=== PATIENT | female | born 1960 | race Caucasian/White ===

== ENCOUNTER → 2017-01-08 | Day surgery (SDC) | payer OTHER ==
--- NOTE | 2017-01-08 16:16 | OP ---
DATE OF OPERATION: DATE OF DICTATION: 01/08/2017 PREOPERATIVE DIAGNOSIS: Abnormal left mammography. POSTOPERATIVE DIAGNOSIS: Abnormal left mammography. PROCEDURE: Left stereotactic needle biopsy with clips. SURGEON: Audelia Barba M.D. ANESTHESIA: Local. COMPLICATIONS: None. This is a sterile procedure. INDICATION FOR PROCEDURE: Patient presented for screening mammogram and noted new microcalcifications anterior to her lumpectomy site on the upper outer left breast, was recommended for needle biopsy. The procedure discussed with her including the need for clip. PROCEDURE IN DETAIL: Patient was brought to [facility] [place], laid prone on the LORAD table. Using the lateral approach, the calcifications in the upper outer left breast were identified. A sterile prep was obtained. A target was chosen. There was a positive stroke margin. Using Betadine and 1% lidocaine, a 10-gauge Suros device was used to take several cores from this area. A specimen radiograph showed cores with calcifications. These were handled with usual calcification protocol. Hemostasis assured with direct pressure. Steri-Strips were used to close the incision. She tolerated the procedure well and left the breast imaging center in good condition. AUDELIA BARBA M.D. [id number]
--- NOTE | 2017-01-09 10:25 | PATH ---
Surgical Pathology Report Patient Name: DANE BUCK [facility]. Rec. #: [id number] /Age/Gender: 1960 (Age: 56) / F Account: [id number] Location: [facility] Taken: 01/08/2017 Received: 01/08/2017 Reported: 01/09/2017 Physicians: Audelia Abarca M.D. Specimen(s) Received A: LEFT BREAST SPECIMEN WITH CALCIFICATIONS B: LEFT BREAST SPECIMEN WITHOUT CALCIFICATIONS Clinical History History of left lumpectomy for breast cancer with calcification anterior to lumpectomy cavity Final Diagnosis A. LEFT BREAST, WITH CALCIFICATION, STEREOTACTIC NEEDLE CORE BIOPSY: BENIGN BREAST TISSUE WITH EXTENSIVE FAT NECROSIS AND FIBROSIS WITH ASSOCIATED DYSTROPHIC CALCIFICATION. B. LEFT BREAST, WITHOUT CALCIFICATION, STEREOTACTIC NEEDLE CORE BIOPSY: BENIGN BREAST TISSUE WITH EXTENSIVE FAT NECROSIS AND FIBROSIS WITH ASSOCIATED DYSTROPHIC CALCIFICATION. Comment: No carcinoma is identified in the current specimen. Also see prior specimen [id number]. Electronically Signed Gabriel Palafox M.D. Gross Description A. Received in formalin labeled "left breast with calcifications," is a 2.0 x 1.5 x 0.3 cm aggregate of multiple zepeda-yellow, irregular to cylindrical portions of fibroadipose tissue. The formalin is filtered and the specimen is entirely submitted in one cassette. B. Received in formalin labeled "left breast without calcifications," are 2 zepeda-yellow, cylindrical portions of fibroadipose tissue averaging 1.4 cm in length and measuring 0.1 and 0.3 cm in diameter. The specimens are submitted in toto in one cassette. Time to formalin fixation: 5 minutes Total formalin fixation time: Approximately 7 hours. /01/08/2017 [facility]01/08/2017
== END | disposition home or self-care (01) ==
LOC: FMAMMOTONE 10:08
PROVIDERS: ATTEND Surgery
PROC: 0HBU3ZX Excision of Left Breast, Percutaneous Approach, Diagnostic (ICD-10-PCS; principal; 2017-01-08)
DX: N64.1 Fat necrosis of breast (principal); R92.8 Other abnormal and inconclusive findings on diagnostic imaging of breast; N60.22 Fibroadenosis of left breast; N64.89 Other specified disorders of breast
CPT/HCPCS: 19081; 88305-TC

== ENCOUNTER 2017-03-17 08:35 | Day surgery (SDC) | payer OTHER ==
[2017-03-17 09:03] VITALS: BMI 30.2
[2017-03-17] MEDS ORDERED: LIDOCAINE HCL 1%, 10 MG/ML (20ML VIAL) ONE (11:02)
[2017-03-17] MEDS ORDERED: MIDAZOLAM HCL 2 MG/2 ML SINGLE DOSE VIAL ONE (11:14)
[2017-03-17] MEDS ORDERED: PROPOFOL 20 ML ONE (11:14)
[2017-03-17] MEDS ORDERED: ceFAZolin SODIUM 1 GM VIAL ONE (11:32)
[2017-03-17] MEDS ORDERED: ceFAZolin SODIUM 1 GM VIAL IVPB ONE (11:34)
[2017-03-17] MEDS ORDERED: LIDOCAINE HCL 1%, 10 MG/ML (50 mL VIAL) IJ ONE (11:36)
[2017-03-17] MEDS ORDERED: oxyCODONE HCL 5 MG TABLET PO PRN (11:55)
[2017-03-17] MEDS ORDERED: ONDANSETRON 4 MG/2 ML VIAL IVPUSH PRN (11:55)
[2017-03-17] MEDS ORDERED: ACETAMINOPHEN 325 MG TABLET (FP) PO PRN (11:55)
[2017-03-17] MEDS ORDERED: LACTATED RINGERS SOLUTION 1,000 ML IV SCH (12:00)
[2017-03-17 14:55] VITALS: PULSE 78
[2017-03-17 14:59] VITALS: BP 101/60; TEMP 97.8
--- NOTE | 2017-03-18 00:33 | OP ---
DATE OF OPERATION: 03/17/2017 PREOPERATIVE DIAGNOSIS: Breast cancer and insufficient venous access. POSTOPERATIVE DIAGNOSIS: Breast cancer and insufficient venous access. PROCEDURE: Removal of right chest Mediport. SURGEON: Audelia Barba M.D. ANESTHESIA: Local IV sedation. ESTIMATED BLOOD LOSS: Minimal. COMPLICATIONS: None. This is a sterile procedure. INDICATION FOR PROCEDURE: Patient had a Mediport for chemotherapy which is now show is done and presents for removal of the Mediport. Procedure discussed with all the questions answered. PROCEDURE IN DETAIL: Patient brought to [facility] taken into the operating room, and after IV sedation, IV antibiotics, the right upper chest was prepped with Betadine and draped in the usual sterile manner. The primary incision was anesthetized with 1% lidocaine without epinephrine. The Mediport was removed without difficulty from the pocket. Hemostasis assured with electrocautery. The incision was then closed in a routine fashion with interrupted 0 Vicryl, running 4-0 Biosyn. A sterile dressing with Tegaderm 4x4 is applied. She tolerated the procedure well, was taken to recovery in good condition. AUDELIA BARBA M.D. AMINTA/[id number]
--- NOTE | 2017-03-18 09:41 | PATH ---
Surgical Pathology Report Patient Name: DANE BUCK Med. Rec. #: [id number] /Age/Gender: 1960 (Age: 57) / F Account: [id number] Location: [facility] Taken: 03/17/2017 Received: 03/17/2017 Reported: 03/18/2017 Physicians: Audelia Abarca M.D. Specimen(s) Received REMOVED ADELA CATH RIGHT Clinical History Removed Port-A-Cath right Final Diagnosis SWATCHER, RIGHT SIDE, REMOVAL: SWATCHER CONSISTENT WITH ADELA CATH (GROSS ONLY). Comment: Also see [id number]. Electronically Signed Gabriel Palafox M.D. Gross Description Received fresh labeled "removed Port-A-Cath right," is a 3.8 x 2.8 x 1.5 cm purple, irregular device, consistent with a adela cath. The Port-A-Cath displays a 20.5 cm in length portion of tubing extending from one aspect. No soft tissue is present. No sections are submitted, gross only. /03/17/2017 [place]03/17/2017
== END 2017-03-17 15:16 | disposition home or self-care (01) ==
LOC: JASU-SURG 08:35
PROVIDERS: ATTEND Surgery
PROC: 0JPT0XZ Removal of Tunneled Vascular Access Device from Trunk Subcutaneous Tissue and Fascia, Open Approach (ICD-10-PCS; principal; 2017-03-17 10:00)
DX: Z45.2 Encounter for adjustment and management of vascular access device (principal); C50.919 Malignant neoplasm of unspecified site of unspecified female breast
CPT/HCPCS: 88300-TC; 94760

== ENCOUNTER → 2018-02-04 | Day surgery (SDC) | payer OTHER ==
--- NOTE | 2018-02-05 13:10 | PATH ---
Surgical Pathology Report Patient Name: DANE DALE [facility]. Rec. #: [id number] /Age/Gender: 1960 (Age: 57) / F Account: [id number] Location: [facility] Taken: 02/04/2018 Received: 02/04/2018 Reported: 02/05/2018 Physicians: Audelia Abarca M.D. Specimen(s) Received A: LEFT BREAST SPECIMEN WITH CALCIFICATIONS B: LEFT BREAST SPECIMEN WITHOUT CALCIFICATIONS Clinical History Nonpalpable lesion, calcification at lumpectomy site upper outer quadrant left Mammographic findings: Probably benign, microcalcification Final Diagnosis A. BREAST, LEFT, WITH CALCIFICATIONS, STEREOTACTIC BIOPSY: FIBROADIPOSE TISSUE SHOWING FAT NECROSIS WITH ASSOCIATED CALCIFICATIONS. B. BREAST, LEFT, WITHOUT CALCIFICATIONS, STITCH AT BIOPSY: PREDOMINANTLY FATTY BREAST TISSUE SHOWING FAT NECROSIS. Electronically Signed Nataly Garner M.D. Gross Description A. Received in formalin labeled "left breast with calcifications," are 5 zepeda-yellow, cylindrical portions of fibroadipose tissue ranging from 0.4-1.5 cm in length and averaging 0.2 cm in diameter. The specimens are submitted in toto in one cassette. B. Received in formalin labeled "left breast without calcifications," are 4 zepeda-yellow, cylindrical portions of fibroadipose tissue ranging from 0.3-1.3 cm in length and averaging 0.3 cm in diameter. The specimens are submitted in toto in one cassette. Time to formalin fixation: 5 minutes Total formalin fixation time: Approximately 7 hours. 02/04/201802/04/2018
== END | disposition home or self-care (01) ==
LOC: FMAMMOTONE 09:59
PROVIDERS: ATTEND Surgery
PROC: 0HBU3ZX Excision of Left Breast, Percutaneous Approach, Diagnostic (ICD-10-PCS; principal; 2018-02-04)
DX: N64.1 Fat necrosis of breast (principal); R92.1 Mammographic calcification found on diagnostic imaging of breast
CPT/HCPCS: 19081; 87899; 88305-TC; A4648

== ENCOUNTER 2018-10-19 11:43 | Emergency (ER) | payer OTHER ==
[2018-10-19 11:53] VITALS: TEMP 98.6; BMI 28.9
--- NOTE | 2018-10-19 12:17 | PDOC ---
History of Present Illness - General Chief Complaint: Blood Pressure Problem Stated Complaint: REPORTS HIGH BLOOD PRESSURE @ HOME, [place] Time Seen by Provider: 10/19/18 11:48 History Source: Patient Exam Limitations: No Limitations - History of Present Illness Initial Comments: 10/19/18 12:16 58y F hx of htn, hl, breast ca sp chemo in 2014 presents with complaint of feeling lightheaded, mild headache, generalized weakness, nausea and concern of her BP. States she checked her BP at home and was 150 sbp, so came in to be evaluated. notse she has had mild nausea since friday, this morning woke up with a mild gradual onset headache not unlike her usual headaches. she took an excedrin with imprvement of her headache. denies any fever/chills, cough, cp, sob, vomiting, diaphoresis, abd pain, back pain, dairrhea, melena, bpr, dysuria, leg swelling. denies any vision changes, focal weakness, numbness/tingling. deneis vertiginous dizziness. no neck pain or haed trauma. notse she is complanit with her meds. PMD Dr. Cerna Past History - Past Medical History Allergies/Adverse Reactions: Allergies Allergy/AdvReac Type Severity Reaction Status Date / Time No Known Drug Allergies Allergy Verified 10/19/18 11:44 Home Medications: Ambulatory Orders Atorvastatin Ca [Lipitor] 40 mg PO HS 10/19/18 Ezetimibe [Zetia] 10 mg PO DAILY 10/19/18 Losartan/Hydrochlorothiazide [Losartan-Hctz 50-12.5 mg Tab] 1 each PO DAILY 08/08 Metoprolol Succinate [Toprol Xl] 50 mg PO DAILY 10/19/18 Zolpidem Tartrate [Ambien] 10 mg PO HS 10/19/18 Anemia: No Asthma: No Cancer: Yes (breast ca left, surgery in 2015, currently in remission) Cardiac Disorders: No CVA: No COPD: No CHF: No Dementia: No Diabetes: No GI Disorders: No Disorders: No HTN: Yes Hypercholesterolemia: Yes Liver Disease: No Psychiatric Problems: Yes (ANXIETY, insomnia) Seizures: No Thyroid Disease: No - Surgical History Abdominal Surgery: No Appendectomy: No Cardiac Surgery: No Cholecystectomy: No Lung Surgery: No Neurologic Surgery: No Orthopedic Surgery: No - Suicide/Smoking/Psychosocial Hx Smoking History: Never smoked Have you smoked in the past 12 months: No Information on smoking cessation initiated: No Hx Alcohol Use: No Drug/Substance Use Hx: No Substance Use Type: None Hx Substance Use Treatment: No Review of Systems - Review of Systems Able to Perform ROS?: Yes Comments:: 10/19/18 12:19 CONSTITUTIONAL: +malaise/weakness No reported: Fever, Chills, Diaphoresis, Loss of Appetite HEENT: No reported: Rhinorrhea, Nasal Congestion, Throat Pain, Throat Swelling, Difficulty Swallowing, Mouth Swelling, Ear Pain, Eye Pain, Visual Changes CARDIOVASCULAR: No reported: Chest Pain, Syncope, Palpitations, Irregular Heart Rate, Peripheral Edema RESPIRATORY: No reported: Cough, Shortness of Breath, SOB with Exertion, Orthopnea, Wheezing , Stridor, Hemoptysis GASTROINTESTINAL: +Nausea, No reported: Abdominal pain, Abdominal Distension, Vomiting, Diarrhea, Constipation, Melena, Hematochezia GENITOURINARY: No reported: Dysuria, Frequency, Urgency, Hesitancy, Flank Pain, Genital Pain MUSCULOSKELETAL: No reported: Myalgia, Arthralgia, Joint Swelling, Back pain, Neck Pain SKIN: No reported: Rash, Itching, Pallor HEMEATOLOGIC/IMMUNOLOGIC: No reported: Easy Bleeding, Easy Bruising, Lymphadenopathy, Frequent infections ENDOCRINE: No reported: Unexplained Weight Gain, Unexplained Weight Loss, Heat Intolerance , Cold Intolerance NEUROLOGIC: +Headache, Lightheadedness, No reported: Focal Weakness, Paresthesias, Vertigo, Lightheadedness, Unsteady Gait, Seizure, Mental Status Changes, Incontinence PSYCHIATRIC: No reported: Anxiety, Depression *Physical Exam - Vital Signs Last Vital Signs Temp Pulse Resp BP Pulse Ox 98.6 F 89 18 160/91 99 10/19/18 11:43 10/19/18 11:43 10/19/18 11:43 10/19/18 11:43 10/19/18 11:43 - Physical Exam Comments: 10/19/18 12:23 GENERAL: The patient is awake, alert, and fully oriented, Nontoxic - in no acute distress. HEAD: Normocephalic, atraumatic. EYES: extraocular movements intact, sclera anicteric, conjunctiva clear, visual hernandez intact to confrontation ENT: Normal voice, Moist mucous membranes. NECK: Normal range of motion, supple LUNGS: Breath sounds equal, clear to auscultation bilaterally. No wheezes, no rhonchi, no rales. HEART: Regular rate and rhythm, without murmur, rub or gallop. ABDOMEN: Soft, nontender, No guarding, no rebound.No CVA tenderness EXTREMITIES: Normal range of motion, no edema. No cyanosis. No erythema, or tenderness. NEUROLOGICAL: No facial assymetry, Normal speech, normal finger to nose, symmetric sensation and motor in upper/lower extremities PSYCH: Normal mood, normal affect. SKIN: Warm, Dry, normal turgor, Heart Score/ECG Review - ECG Impressions Comment:: 10/19/18 12:24 Twelve-lead EKG was performed and reviewed by me. There is normal sinus rhythm with a normal rate. The axis is normal. The intervals are normal. There is normal R wave progression There are no ST or T wave abnormalities. Impression: Normal twelve-lead EKG ED Treatment Course - LABORATORY CBC & Chemistry Diagram: 10/19/18 12:25 10/19/18 12:25 Medical Decision Making - Medical Decision Making 10/19/18 13:49 ddx includes anemia, metabolic derangement, htn cbc wnl trop neg x 1 awaiting rest of CMP 10/19/18 15:17 pt feeling improved labs reviewed and unremarkble UA was contaminated, no symptoms so will defer treatment 10/19/18 15:28 I discussed the physical exam findings, ancillary test results and final diagnoses with the patient. I answered all of the patient's questions. The patient was satisfied with the care received and felt comfortable with the discharge plan and treatment plan. The patient will call their primary care physician within 24 hours to arrange follow-up and will return to the Emergency Department with any new, persistent or worsening symptoms. *DC/Admit/Observation/Transfer Diagnosis at time of Disposition: Generalized weakness - Discharge Dispostion Disposition: HOME Condition at time of disposition: Improved Decision to Admit order: No - Referrals Referrals: Gabriel Cerna [Primary Care Provider] - - Patient Instructions Printed Discharge Instructions: DI for High Blood Pressure Additional Instructions: Regrese al departamento de emergencias inmediatamente con CUALQUIER sntoma nuevo, persistente o que empeore. DEBE llamar y hacer un seguimiento con dubois mdico maana para ifeanyi evaluacin adicional de colin sntomas. Los resultados fueron discutidos con usted. Asegrese de que dubois mdico revise los resultados de dubois evaluacin de emergencia. Return to the emergency department immediately with ANY new, persistent or worsening symptoms. You MUST call and follow up with your doctor tomorrow for further evaluation of your symptoms. Results were discussed with you. Please make sure your doctor reviews the results of your emergency evaluation. Print Language: JAPANESE - Post Discharge Activity
--- NOTE | 2018-10-19 12:35 | EKG ---
Test Reason : Blood Pressure : / mmHG Vent. Rate : 069 BPM Atrial Rate : 069 BPM P-R Int : 172 ms QRS Dur : 086 ms QT Int : 400 ms P-R-T Axes : 028 030 030 degrees QTc Int : 428 ms NORMAL SINUS RHYTHM NORMAL ECG WHEN COMPARED WITH ECG OF 17-JAN-2018 11:39, NO SIGNIFICANT CHANGE WAS FOUND Confirmed by LORRAINE SANTIAGO MD ([id number]) on 10/19/2018 12:35:09 PM Referred By: WHITNEY COHEN Confirmed By:LORRAINE SANTIAGO MD
[2018-10-19 12:38] LABS: BASO % 0.4 % (0-2.0); EOS % 0.4 % (0-4.5); HEMATOCRIT 41.4 % (32.4-45.2); HEMOGLOBIN 13.6 GM/dl (10.7-15.3); LYMPH % 20.3 % (8-40); MCH 30.5 pg (25.7-33.7); MEAN CELL VOLUME 92.5 fl (80-96); MEAN PLT VOLUME 8.3 fl (7.5-11.1); MONO % 5.8 % (3.8-10.2); NEUT % 73.1 % (42.8-82.8); PLATELET COUNT 326 K/MM3 (134-434); RBC 4.47 M/mm3 (3.60-5.2); RDW 13.1 % (11.6-15.6); WHITE BLOOD COUNT 6.2 K/mm3 (4.0-10.8)
[2018-10-19 13:10] LABS: ALBUMIN 4.1 g/dl (3.4-5.0); ALK PHOS 94 U/L (45-117); ANION GAP 9 MMOL/L (8-16); BILIRUBIN,TOTAL 0.6 mg/dl (0.2-1); BLOOD UREA NITROGEN 16 mg/dl (7-18); CALCIUM 9.8 mg/dl (8.5-10); CHLORIDE 101 mmol/L (98-107); CO2 26 mmol/L (21-32); CREATININE 0.6 mg/dl (0.55-1.3); GLUCOSE,RANDOM 103 mg/dl (74-106); POTASSIUM 3.5 mmol/L (3.5-5.1); SGOT/AST 19 U/L (15-37); SGPT/ALT 15 U/L (13-61); SODIUM 136 mmol/L (136-145); TOT PROT 7.4 g/dl (6.4-8.2)
[2018-10-19] MEDS ORDERED: METOCLOPRAMIDE HCL 10 MG TABLET (FP) PO ONE ×2 (14:10→14:17)
[2018-10-19] MEDS ORDERED: ACETAMINOPHEN 325 MG TABLET (FP) PO ONE (14:10)
[2018-10-19 14:11] VITALS: BP 133/68; PULSE 71
[2018-10-19] MEDS ORDERED: ACETAMINOPHEN 325 MG TABLET (FP) ONE (14:17)
[2018-10-19] MEDS ORDERED: METOCLOPRAMIDE HCL INJECTION 10 MG/2 ML VIAL IVPUSH ONE (14:19)
[2018-10-19] MEDS ORDERED: SODIUM CHLORIDE 1,000 ML IV ONE (14:19)
[2018-10-19] MEDS ORDERED: METOCLOPRAMIDE HCL INJECTION 10 MG/2 ML VIAL ONE (14:25)
[2018-10-19 14:26] LABS: EPITHELIAL CELLS FEW /hpf
== END 2018-10-19 15:35 | disposition home or self-care (01) ==
LOC: FER 11:43
PROC: 3E033GC Introduction of Other Therapeutic Substance into Peripheral Vein, Percutaneous Approach (ICD-10-PCS; principal; 2018-10-19)
PROC: 3E0337Z Introduction of Electrolytic and Water Balance Substance into Peripheral Vein, Percutaneous Approach (ICD-10-PCS; 2018-10-19)
DX: R53.1 Weakness (principal); I10 Essential (primary) hypertension; F41.9 Anxiety disorder, unspecified; E78.00 Pure hypercholesterolemia, unspecified
CPT/HCPCS: 36415; 80053; 81003; 81015; 82550; 84484; 85025; 93005; 99285-25; J7030

== ENCOUNTER 2021-01-29 06:48 | Emergency (ER) | payer OTHER ==
[2021-01-29 07:14] VITALS: TEMP 98.3; BMI 29.5
[2021-01-29] MEDS ORDERED: ASPIRIN 81 MG CHEWABLE TABLETS PO ONE (07:54)
[2021-01-29] MEDS ORDERED: METOPROLOL TARTRATE 50 MG TABLET (FP) PO ONE (07:56)
[2021-01-29] MEDS ORDERED: METOPROLOL TARTRATE 50 MG TABLET (FP) ONE (08:04)
[2021-01-29] MEDS ORDERED: ASPIRIN 81 MG CHEWABLE TABLETS ONE (08:04)
[2021-01-29 08:32] LABS: BASO % 0.4 % (0-2.0); EOS % 0.5 % (0-4.5); HEMATOCRIT 36.5 % (32.4-45.2); HEMOGLOBIN 12.1 GM/dL (10.7-15.3); LYMPH % 26.3 % (8-40); MCH 29.6 pg (25.7-33.7); MCHC 33.2 g/dl (32.0-36.0); MEAN CELL VOLUME 89.3 fl (80-96); MEAN PLT VOLUME 7.3 fl (7.5-11.1); NEUT % 67.8 % (42.8-82.8); PLATELET COUNT 342 10^3/uL (134-434); RBC 4.09 M/mm3 (3.60-5.2); RDW 14.1 % (11.6-15.6)
[2021-01-29 08:51] LABS: CHLORIDE 107 mmol/L (98-107); SODIUM 140 mmol/L (136-145)
[2021-01-29 08:53] LABS: ALBUMIN 3.8 g/dl (3.4-5.0); BLOOD UREA NITROGEN 16.1 mg/dL (7-18); CALCIUM 9.4 mg/dL (8.5-10.1); GLUCOSE,RANDOM 99 mg/dL (74-106)
[2021-01-29 08:54] LABS: ANION GAP 8 MMOL/L (8-16); CO2 26 mmol/L (21-32); MAGNESIUM 2.2 mg/dL (1.8-2.4)
[2021-01-29 08:57] LABS: CREATININE 0.7 mg/dL (0.55-1.3); SGOT/AST 15 U/L (15-37); SGPT/ALT 18 U/L (13-61)
[2021-01-29 08:59] LABS: BILIRUBIN,TOTAL 0.3 mg/dL (0.2-1); TOT PROT 7.9 g/dl (6.4-8.2)
[2021-01-29 09:00] LABS: ALK PHOS 117 U/L (45-117)
[2021-01-29 10:04] LABS: EPI CELLS 3 /uL (0-25.1); HYALINE CASTS 0 /uL (0-3.1); PH,URINE 6.5 (5.0-8.0); URINE APPEARANCE CLEAR; URINE BACTERIA 11 /uL (0-1359); URINE BILIRUBIN NEGATIVE (NEGATIVE); URINE COLOR YELLOW; URINE GLUCOSE (UA) NEGATIVE (NEGATIVE); URINE KETONE NEGATIVE (NEGATIVE); URINE LEUK ESTERASE TRACE (NEGATIVE); URINE NITRITE NEGATIVE (NEGATIVE); URINE PROTEIN NEGATIVE (NEGATIVE); URINE RBC 1 /uL (0-23.9); URINE UROBILINOGEN 0.2 mg/dL (0.2-1.0); URINE WBC 4 /uL (0-25.8)
[2021-01-29 10:16] VITALS: BP 165/76; PULSE 60
[2021-01-29] MEDS ORDERED: ACETAMINOPHEN 500 MG TABLET (FP) PO ONE (10:39)
[2021-01-29] MEDS ORDERED: ACETAMINOPHEN 500 MG TABLET (FP) ONE (10:40)
== END 2021-01-29 10:55 | disposition home or self-care (01) ==
LOC: JER 06:48 → JERFT 06:48
DX: I10 Essential (primary) hypertension (principal)
CPT/HCPCS: 36415; 71046-TC-FY; 71275-TC; 80053; 81003; 82550; 83735; 84484; 85025; 85379; 87086; 93005; 93010; 93971-TC; 99285-25; Q9967

== ENCOUNTER 2024-04-23 04:25 | Emergency (ER) | payer OTHER ==
[2024-04-23 04:46] VITALS: BP 123/75; PULSE 63; RESP 14; TEMP 96.7; BMI 31.1
[2024-04-23] MEDS ORDERED: ACETAMINOPHEN 325 MG TABLET (FP) ONE (05:33)
[2024-04-23] MEDS ORDERED: KETOROLAC TROMETHAMINE 30 MG/1 ML VIAL ONE (05:34)
[2024-04-23] MEDS: KETOROLAC TROMETHAMINE 30 MG/1 ML VIAL IM ONE (05:45)
[2024-04-23] MEDS: ACETAMINOPHEN 500 MG TABLET (FP) PO ONE (05:46)
== END 2024-04-23 06:39 | disposition home or self-care (01) ==
LOC: JER 04:25
PROC: 3E0233Z Introduction of Anti-inflammatory into Muscle, Percutaneous Approach (ICD-10-PCS; principal; 2024-04-23)
DX: R42 Dizziness and giddiness (principal); I10 Essential (primary) hypertension; R00.2 Palpitations; R07.2 Precordial pain
CPT/HCPCS: 93005; 93010; 99284-25

== ENCOUNTER 2025-01-04 06:58 | Inpatient (IN) | payer OTHER ==
[2025-01-04] MEDS ORDERED: ISOSULFAN BLUE 50 MG/5 ML VIAL SQ ONE (07:22)
[2025-01-04] MEDS ORDERED: LIDOCAINE HCL 1%, 10 MG/ML (20ML VIAL) ONE (07:22)
[2025-01-04] MEDS ORDERED: PROPOFOL 40 ML ONE (08:30)
[2025-01-04] MEDS ORDERED: MIDAZOLAM HCL 2 MG/2 ML SINGLE DOSE VIAL ONE (08:31)
[2025-01-04] MEDS ORDERED: LIDOCAINE HCL/PF 2% SDV 5ML VIAL ONE (08:32)
[2025-01-04] MEDS ORDERED: ROCURONIUM BROMIDE 50 MG/5 ML SYRINGE ONE ×2 (08:32→11:13)
[2025-01-04] MEDS ORDERED: DEXAMETHASONE SOD PHOSPHATE 4 MG/1 ML VIAL ONE (10:02)
[2025-01-04] MEDS ORDERED: ceFAZolin SODIUM 1 GM VIAL ONE (10:02)
[2025-01-04] MEDS ORDERED: ONDANSETRON 4 MG/2 ML VIAL ONE (10:02)
[2025-01-04] MEDS ORDERED: KETOROLAC TROMETHAMINE 30 MG/1 ML VIAL ONE (10:08)
[2025-01-04] MEDS: ceFAZolin SODIUM 1 GM VIAL IVPB ONE ×2 (10:22)
[2025-01-04] MEDS ORDERED: ONDANSETRON 4 MG/2 ML VIAL IVPB PRN ×2 (11:54→20:20)
[2025-01-04] MEDS ORDERED: ACETAMINOPHEN 500 MG TABLET (FP) PO PRN ×3 (11:54→20:20)
[2025-01-04] MEDS ORDERED: ACETAMINOPHEN INJECTION 100 ML ONE (12:48)
[2025-01-04] MEDS ORDERED: SUGAMMADEX SODIUM 200 MG/2 ML VIAL ONE (12:50)
[2025-01-04] MEDS ORDERED: ONDANSETRON 4 MG/2 ML VIAL IVPUSH PRN (13:22)
[2025-01-04] MEDS: HYDROmorphone *PCA* 10MG/50ML DISP.SYRIN PCA SCH (14:49)
[2025-01-04] MEDS: LACTATED RINGERS SOLUTION 1,000 ML/1,000 ML INFUS.BAG IV SCH ×2 (16:20→22:41)
[2025-01-04 18:47] LABS: POTASSIUM 4.1 mmol/L (3.5-5.1)
[2025-01-04 18:49] LABS: ALBUMIN 2.8 g/dl (3.4-5.0); BLOOD UREA NITROGEN 32.3 mg/dL (7-18); CALCIUM 8.4 mg/dL (8.5-10.1)
[2025-01-04 18:52] LABS: CREATININE 1.1 mg/dL (0.55-1.3)
[2025-01-04 18:54] LABS: BILIRUBIN,TOTAL 0.3 mg/dL (0.2-1); TOT PROT 5.3 g/dl (6.4-8.2)
[2025-01-04] MEDS ORDERED: HYDROmorphone HCl 2 MG/ML VIAL IVPUSH PRN (19:16)
[2025-01-04 19:55] LABS: HEMATOCRIT 27.3 % (34.1-44.9); HEMOGLOBIN 8.8 g/dL (11.2-15.7); MCHC 32.2 g/dl (32.2-35.5); MEAN CELL VOLUME 92.9 fl (79.4-94.8); MEAN PLT VOLUME 9.3 fl (9.4-12.3); PLATELET COUNT 316 x10^3/uL (182-369); RDW 13.5 % (12.4-16.4)
[2025-01-04] MEDS ORDERED: HYDROmorphone HCL CARPU-JECT 2 MG/1 ML DISP.SYRIN IVPUSH PRN (20:52)
[2025-01-04] MEDS: SODIUM CHLORIDE 1,000 ML IV STA ×2 (22:17→22:52)
[2025-01-04] MEDS: MUPIROCIN 2% TOPICAL OINTMENT FOR DECOLONIZATION NS SCH (22:17)
[2025-01-04] MEDS: CHLORHEXIDINE GLUCONATE 4% CLEANSER FOR DECOLONIZATION TP SCH (22:18)
[2025-01-04] MEDS: CEFAZOLIN (F) 1 GM/D5W 1 GM/50 ML BAG IVPB SCH (22:52)
[2025-01-04] MEDS: LACTATED RINGERS SOLUTION 1,000 ML IV SCH (22:52)
[2025-01-05] MEDS: CEFAZOLIN (F) 1 GM/D5W 1 GM/50 ML BAG IVPB SCH (02:05)
[2025-01-05 06:48] LABS: HEMATOCRIT 21.8 % (34.1-44.9); MCHC 32.1 g/dl (32.2-35.5); MEAN CELL VOLUME 93.2 fl (79.4-94.8); MEAN PLT VOLUME 10.1 fl (9.4-12.3); PLATELET COUNT 267 x10^3/uL (182-369); RDW 13.8 % (12.4-16.4)
[2025-01-05 07:00] LABS: INR 1.26 (0.83-1.09); PROTHROMBIN TIME (PATIENT) 13.9 SEC (9.7-13.0)
[2025-01-05 07:15] LABS: POTASSIUM 4.1 mmol/L (3.5-5.1)
[2025-01-05 07:17] LABS: BLOOD UREA NITROGEN 36.6 mg/dL (7-18); CALCIUM 8.4 mg/dL (8.5-10.1)
[2025-01-05 07:18] LABS: ALBUMIN 2.9 g/dl (3.4-5.0)
[2025-01-05 07:20] LABS: BILIRUBIN,DIRECT 0.1 mg/dL (0.0-0.2)
[2025-01-05 07:21] LABS: CREATININE 1.2 mg/dL (0.55-1.3); PHOSPHOROUS 4.2 mg/dL (2.5-4.9)
[2025-01-05 07:22] LABS: BILIRUBIN,TOTAL 0.3 mg/dL (0.2-1); TOT PROT 5.7 g/dl (6.4-8.2)
[2025-01-05] MEDS ORDERED: ACETAMINOPHEN 325 MG TABLET (FP) PO PRN ×2 (12:00)
[2025-01-05] MEDS ORDERED: oxyCODONE HCL 5 MG TABLET PO PRN (12:00)
[2025-01-05] MEDS: oxyCODONE HCL 5 MG TABLET PO PRN (14:54)
[2025-01-05 14:55] VITALS: BMI 34.4
[2025-01-05] MEDS ORDERED: ONDANSETRON 4 MG/2 ML VIAL IVPB PRN (16:04)
[2025-01-05] MEDS ORDERED: HYDROmorphone HCL CARPU-JECT 2 MG/1 ML DISP.SYRIN IVPUSH PRN (16:04)
[2025-01-05 16:09] LABS: HEMATOCRIT 25.2 % (34.1-44.9); HEMOGLOBIN 8.4 g/dL (11.2-15.7); MCHC 33.3 g/dl (32.2-35.5); MEAN PLT VOLUME 9.4 fl (9.4-12.3); PLATELET COUNT 239 x10^3/uL (182-369); RDW 14.5 % (12.4-16.4)
[2025-01-05] MEDS: LACTATED RINGERS SOLUTION 1,000 ML/1,000 ML INFUS.BAG IV SCH (17:00)
[2025-01-05] MEDS: CEFAZOLIN 1 GM/D5W 1 GM/50 ML BAG IVPB SCH (17:53)
[2025-01-05] MEDS ORDERED: CEFAZOLIN (F) 1 GM/D5W 1 GM/50 ML BAG IVPB SCH (18:00)
[2025-01-05] MEDS: ATORVASTATIN CA 40 MG TABLET (FP) PO SCH (21:17)
[2025-01-05] MEDS: ACETAMINOPHEN 325 MG TABLET (FP) PO PRN (22:02)
[2025-01-06 08:01] LABS: ABSOLUTE IMMATURE GRANULOCYTES 0.02 x10^3/uL (0.0-0.031); BASOPHILS # 0.02 x10^3/uL (0.01-0.08); EOSINOPHIL % 0.6 % (0.7-5.8); EOSINOPHILS # 0.04 x10^3/uL (0.04-0.36); HEMATOCRIT 22.8 % (34.1-44.9); HEMOGLOBIN 7.4 g/dL (11.2-15.7); MCHC 32.5 g/dl (32.2-35.5); MEAN CELL VOLUME 89.8 fl (79.4-94.8); MEAN PLT VOLUME 9.4 fl (9.4-12.3); MONOCYTE # 0.55 x10^3/uL (0.24-0.86); MONOCYTE % 7.7 % (4.7-12.5); PLATELET COUNT 225 x10^3/uL (182-369); RDW 15.1 % (12.4-16.4)
[2025-01-06 08:26] LABS: POTASSIUM 3.8 mmol/L (3.5-5.1)
[2025-01-06 08:35] LABS: ALBUMIN 2.7 g/dl (3.4-5.0); BLOOD UREA NITROGEN 36.7 mg/dL (7-18); CREATININE 1.1 mg/dL (0.55-1.3)
[2025-01-06 08:37] LABS: BILIRUBIN,TOTAL 0.4 mg/dL (0.2-1); CALCIUM 8.8 mg/dL (8.5-10.1); TOT PROT 5.3 g/dl (6.4-8.2)
[2025-01-06 08:38] LABS: PHOSPHOROUS 2.5 mg/dL (2.5-4.9)
[2025-01-06 08:42] LABS: MAGNESIUM 2.3 mg/dL (1.8-2.4)
[2025-01-06] MEDS: ASCORBIC ACID 250 MG TABLET (FP) PO SCH (09:47)
[2025-01-06] MEDS: EZETIMIBE 10 MG TABLET (FP) PO SCH (09:47)
[2025-01-06] MEDS: MULTIVITAMINS (DAILY MVI) TABLET (FP) PO SCH (09:47)
[2025-01-06] MEDS: metoPROLOL SUCCINATE 25 MG TAB.SR.24H (FP) PO SCH (09:47)
[2025-01-06] MEDS: POLYETHYLENE GLYCOL (HEALTHYLAX) 3350 17 GM PACKET PO SCH (09:47)
[2025-01-06] MEDS: POTASSIUM CHLORIDE ORAL LIQUID 20 MEQ/15 ML PO ONE (09:50)
[2025-01-06] MEDS: oxyCODONE HCL 5 MG TABLET PO PRN (10:00)
[2025-01-06] MEDS ORDERED: LOSARTAN 50MG/HCTZ 12.5MG 1 TAB PO SCH (10:00)
[2025-01-06] MEDS: DOCUSATE SODIUM 100 MG CAPSULE (FP) PO SCH (13:47)
[2025-01-06] MEDS: ACETAMINOPHEN 325 MG TABLET (FP) PO PRN (20:21)
[2025-01-07 08:29] LABS: ABSOLUTE IMMATURE GRANULOCYTES 0.01 x10^3/uL (0.0-0.031); BASOPHILS # 0.02 x10^3/uL (0.01-0.08); EOSINOPHIL % 2.7 % (0.7-5.8); EOSINOPHILS # 0.17 x10^3/uL (0.04-0.36); HEMATOCRIT 21.1 % (34.1-44.9); HEMOGLOBIN 6.8 g/dL (11.2-15.7); MCHC 32.2 g/dl (32.2-35.5); MEAN CELL VOLUME 92.1 fl (79.4-94.8); MEAN PLT VOLUME 9.6 fl (9.4-12.3); MONOCYTE # 0.59 x10^3/uL (0.24-0.86); MONOCYTE % 9.4 % (4.7-12.5); PLATELET COUNT 230 x10^3/uL (182-369); RDW 14.8 % (12.4-16.4)
[2025-01-07 08:51] LABS: POTASSIUM 4.2 mmol/L (3.5-5.1)
[2025-01-07 08:58] LABS: ALBUMIN 2.7 g/dl (3.4-5.0); BLOOD UREA NITROGEN 29.7 mg/dL (7-18); CALCIUM 8.7 mg/dL (8.5-10.1); MAGNESIUM 2.2 mg/dL (1.8-2.4)
[2025-01-07 09:01] LABS: CREATININE 1.1 mg/dL (0.55-1.3)
[2025-01-07 09:03] LABS: BILIRUBIN,TOTAL 0.4 mg/dL (0.2-1); TOT PROT 5.2 g/dl (6.4-8.2)
[2025-01-07] MEDS: oxyCODONE HCL 5 MG TABLET PO PRN (10:18)
[2025-01-07] MEDS: CEPHALEXIN MONOHYDRATE 500 MG CAPSULE (UD) PO SCH (10:20)
[2025-01-07] MEDS: LOSARTAN 50MG/HCTZ 12.5MG 1 TAB PO SCH (15:27)
[2025-01-07] MEDS: metoPROLOL SUCCINATE 25 MG TAB.SR.24H (FP) PO ONE ×2 (15:27→20:43)
[2025-01-07] MEDS: BISACODYL 10 MG SUPP.RECT PR ONE (18:14)
[2025-01-07 18:37] LABS: HEMATOCRIT 24.3 % (34.1-44.9); HEMOGLOBIN 7.9 g/dL (11.2-15.7); MCHC 32.5 g/dl (32.2-35.5); MEAN CELL VOLUME 92.7 fl (79.4-94.8); MEAN PLT VOLUME 9.6 fl (9.4-12.3); PLATELET COUNT 222 x10^3/uL (182-369); RDW 14.6 % (12.4-16.4)
[2025-01-08 07:58] LABS: HEMATOCRIT 22.8 % (34.1-44.9); HEMOGLOBIN 7.4 g/dL (11.2-15.7); MCHC 32.5 g/dl (32.2-35.5); MEAN PLT VOLUME 9.6 fl (9.4-12.3); RDW 14.9 % (12.4-16.4)
[2025-01-08 08:00] LABS: MEAN CELL VOLUME 91.6 fl (79.4-94.8); PLATELET COUNT 234 x10^3/uL (182-369)
[2025-01-08 08:32] LABS: POTASSIUM 3.9 mmol/L (3.5-5.1)
[2025-01-08 08:41] LABS: ALBUMIN 2.6 g/dl (3.4-5.0); BLOOD UREA NITROGEN 27.3 mg/dL (7-18); CALCIUM 8.7 mg/dL (8.5-10.1); MAGNESIUM 2.1 mg/dL (1.8-2.4)
[2025-01-08 08:45] LABS: BILIRUBIN,TOTAL 0.5 mg/dL (0.2-1); TOT PROT 5.3 g/dl (6.4-8.2)
[2025-01-08] MEDS: metoPROLOL SUCCINATE 25 MG TAB.SR.24H (FP) PO ONE ×2 (09:07→22:00)
[2025-01-08] MEDS: metoPROLOL SUCCINATE 25 MG TAB.SR.24H (FP) PO SCH (09:41)
[2025-01-08] MEDS ORDERED: LOSARTAN POTASSIUM 50 MG TABLET PO SCH (10:00)
[2025-01-08] MEDS ORDERED: HYDROCHLOROTHIAZIDE 25 MG TABLET (FP) PO SCH (10:00)
[2025-01-08 10:13] LABS: PHOSPHOROUS 4.2 mg/dL (2.5-4.9)
[2025-01-08] MEDS: LOSARTAN POTASSIUM 50 MG TABLET PO SCH (11:31)
[2025-01-08] MEDS: POTASSIUM CHLORIDE ORAL LIQUID 20 MEQ/15 ML PO ONE (11:31)
[2025-01-08] MEDS: HYDROCHLOROTHIAZIDE 12.5 MG CAPSULE (FP) PO SCH (11:31)
[2025-01-08 16:23] LABS: HEMATOCRIT 24.3 % (34.1-44.9); HEMOGLOBIN 7.9 g/dL (11.2-15.7); MCHC 32.5 g/dl (32.2-35.5); MEAN PLT VOLUME 9.3 fl (9.4-12.3); PLATELET COUNT 259 x10^3/uL (182-369)
[2025-01-08 16:24] LABS: RDW 14.7 % (12.4-16.4)
[2025-01-08] MEDS: IRON SUCROSE INJECTION 100 MG in SODIUM CHLORIDE 95 ML IVPB ONE (22:01)
[2025-01-09 08:01] LABS: ABSOLUTE IMMATURE GRANULOCYTES 0.03 x10^3/uL (0.0-0.031); BASOPHILS # 0.02 x10^3/uL (0.01-0.08); EOSINOPHIL % 4.1 % (0.7-5.8); EOSINOPHILS # 0.26 x10^3/uL (0.04-0.36); HEMATOCRIT 22.8 % (34.1-44.9); HEMOGLOBIN 7.4 g/dL (11.2-15.7); MCHC 32.5 g/dl (32.2-35.5); MEAN CELL VOLUME 91.2 fl (79.4-94.8); MEAN PLT VOLUME 9.5 fl (9.4-12.3); MONOCYTE # 0.54 x10^3/uL (0.24-0.86); MONOCYTE % 8.5 % (4.7-12.5); PLATELET COUNT 275 x10^3/uL (182-369); RDW 14.5 % (12.4-16.4)
[2025-01-09 08:10] LABS: POTASSIUM 4.1 mmol/L (3.5-5.1)
[2025-01-09 08:26] LABS: ALBUMIN 2.7 g/dl (3.4-5.0); BLOOD UREA NITROGEN 27.4 mg/dL (7-18); CALCIUM 9.1 mg/dL (8.5-10.1)
[2025-01-09 08:31] LABS: BILIRUBIN,TOTAL 0.6 mg/dL (0.2-1); TOT PROT 5.4 g/dl (6.4-8.2)
[2025-01-09 10:28] LABS: PHOSPHOROUS 4.1 mg/dL (2.5-4.9)
[2025-01-09] MEDS: FERROUS SO4 325 MG TABLET (FP) PO SCH (17:15)
[2025-01-10 04:09] VITALS: RESP 18
[2025-01-10 08:07] LABS: ABSOLUTE IMMATURE GRANULOCYTES 0.05 x10^3/uL (0.0-0.031); BASOPHILS # 0.01 x10^3/uL (0.01-0.08); EOSINOPHIL % 3.3 % (0.7-5.8); EOSINOPHILS # 0.23 x10^3/uL (0.04-0.36); HEMATOCRIT 23.9 % (34.1-44.9); HEMOGLOBIN 7.5 g/dL (11.2-15.7); MCHC 31.4 g/dl (32.2-35.5); MEAN CELL VOLUME 92.3 fl (79.4-94.8); MONOCYTE # 0.49 x10^3/uL (0.24-0.86); PLATELET COUNT 317 x10^3/uL (182-369); RDW 14.6 % (12.4-16.4)
[2025-01-10 11:37] VITALS: BP 118/54; PULSE 82; TEMP 98
== END 2025-01-10 11:59 | disposition home or self-care (01) | DRG 362 ==
LOC: UNDOADMIN 06:58 → J2C 06:58 → EDSTATUS 08:15 → J6S 16:34 → J2C 16:34 → J6S 18:38 → JICU 18:38 → J8W 01-05 14:48 → JICU 01-05 14:48 → J8W 01-05 15:33 → J2C 01-05 15:33 → JICU 01-05 15:33 → J6S 01-05 15:33 → J8W 01-09 11:31
PROVIDERS: ADMIT Surgery; ATTEND Nurse Practitioner Family
PROC: 0HTV0ZZ Resection of Bilateral Breast, Open Approach (ICD-10-PCS; principal; 2025-01-04 09:00)
PROC: 07B60ZZ Excision of Left Axillary Lymphatic, Open Approach (ICD-10-PCS; 2025-01-04 09:00)
PROC: 0HRV0JZ Replacement of Bilateral Breast with Synthetic Substitute, Open Approach (ICD-10-PCS; 2025-01-04 09:00)
PROC: 0HHV0NZ Insertion of Tissue Expander into Bilateral Breast, Open Approach (ICD-10-PCS; 2025-01-04 09:00)
PROC: 30233N1 Transfusion of Nonautologous Red Blood Cells into Peripheral Vein, Percutaneous Approach (ICD-10-PCS; 2025-01-05)
DX: C50.919 Malignant neoplasm of unspecified site of unspecified female breast (principal); R57.9 Shock, unspecified; D62 Acute posthemorrhagic anemia; E78.5 Hyperlipidemia, unspecified; I10 Essential (primary) hypertension
CPT/HCPCS: 36415; 36430; 78195-TC; 80048; 80053; 80076; 82550; 82553; 82962; 83540; 83550; 83605; 83735; 84100; 84484; 85025; 85027; 85384; 85610; 85730; 86850; 86900; 86901; 86922; 88307-TC; 93005; 93010; 94010; 94760; 97116-GP; 97161-GP; A9541; C1789; J1756; P9038; P9058; Q4116

== ENCOUNTER 2025-01-12 05:14 | Inpatient (IN) | payer OTHER ==
[2025-01-12 05:33] VITALS: BMI 32.1
[2025-01-12 06:33] LABS: HEMATOCRIT 24.7 % (34.1-44.9); HEMOGLOBIN 7.9 g/dL (11.2-15.7); MEAN CELL VOLUME 94.6 fl (79.4-94.8); MEAN PLT VOLUME 8.9 fl (9.4-12.3); PLATELET COUNT 380 x10^3/uL (182-369); RDW 14.6 % (12.4-16.4)
[2025-01-12 06:39] LABS: INR 1.26 (0.83-1.09); PROTHROMBIN TIME (PATIENT) 13.7 SEC (9.7-13.0)
[2025-01-12 06:42] LABS: ACTIVATED PTT 34.3 SECONDS (25.2-36.5)
[2025-01-12 06:48] LABS: POTASSIUM 4.4 mmol/L (3.5-5.1)
[2025-01-12 06:52] LABS: ALBUMIN 2.9 g/dl (3.4-5.0); BLOOD UREA NITROGEN 27.1 mg/dL (7-18); CALCIUM 9.5 mg/dL (8.5-10.1); MAGNESIUM 2.2 mg/dL (1.8-2.4)
[2025-01-12 06:56] LABS: BILIRUBIN,TOTAL 0.4 mg/dL (0.2-1); TOT PROT 6.2 g/dl (6.4-8.2)
[2025-01-12] MEDS ORDERED: HEPARIN NA (PORCINE) 5,000 UNITS/ML 1ML VIAL IVPUSH PRN ×2 (09:00)
[2025-01-12] MEDS ORDERED: HEPARIN NA (PORCINE) 5,000 UNITS/ML 1ML VIAL ONE (10:10)
[2025-01-12] MEDS ORDERED: HEPARIN INFUSION - 25,000 UNITS/500 ML INFUS.BAG IVPB ONE (10:10)
[2025-01-12] MEDS: HEPARIN INFUSION - 25,000 UNITS/500 ML INFUS.BAG IVPB SCH (10:31)
[2025-01-12] MEDS: HEPARIN NA (PORCINE) 5,000 UNITS/ML 1ML VIAL IVPUSH ONE ×2 (10:31→20:45)
[2025-01-12 12:41] LABS: HCV DIAGNOSTIC IN-HOUSE W/RFLX NON-REACTIVE (NONREACTIVE)
[2025-01-12 12:45] LABS: HIV INTERPRETATION NEGATIVE (NEGATIVE)
[2025-01-12] MEDS ORDERED: oxyCODONE HCL 5 MG TABLET PO PRN (16:42)
[2025-01-12] MEDS ORDERED: DOCUSATE SODIUM 100 MG CAPSULE (FP) PO PRN (16:42)
[2025-01-12] MEDS: CEPHALEXIN MONOHYDRATE 500 MG CAPSULE (UD) PO SCH (21:37)
[2025-01-12] MEDS: ATORVASTATIN CA 40 MG TABLET (FP) PO SCH (21:37)
[2025-01-12] MEDS: ACETAMINOPHEN 325 MG TABLET (FP) PO PRN (21:37)
[2025-01-13 08:21] LABS: HEMATOCRIT 29.4 % (34.1-44.9); HEMOGLOBIN 9.2 g/dL (11.2-15.7); MCHC 31.3 g/dl (32.2-35.5); MEAN CELL VOLUME 93.6 fl (79.4-94.8); PLATELET COUNT 476 x10^3/uL (182-369); RDW 14.4 % (12.4-16.4)
[2025-01-13 08:50] LABS: POTASSIUM 3.9 mmol/L (3.5-5.1)
[2025-01-13 08:57] LABS: CALCIUM 9.5 mg/dL (8.5-10.1)
[2025-01-13 08:58] LABS: ALBUMIN 3.2 g/dl (3.4-5.0); BLOOD UREA NITROGEN 25.5 mg/dL (7-18)
[2025-01-13 09:01] LABS: CREATININE 0.8 mg/dL (0.55-1.3)
[2025-01-13 09:02] LABS: BILIRUBIN,TOTAL 0.5 mg/dL (0.2-1)
[2025-01-13] MEDS: LOSARTAN 50MG/HCTZ 12.5MG 1 TAB PO SCH (09:56)
[2025-01-13 21:29] VITALS: RESP 16
[2025-01-14 07:50] LABS: HEMATOCRIT 28.7 % (34.1-44.9); HEMOGLOBIN 9.3 g/dL (11.2-15.7); MCHC 32.4 g/dl (32.2-35.5); MEAN CELL VOLUME 93.8 fl (79.4-94.8); MEAN PLT VOLUME 9.1 fl (9.4-12.3); PLATELET COUNT 489 x10^3/uL (182-369); RDW 14.3 % (12.4-16.4)
[2025-01-14] MEDS: APIXABAN 5 MG TABLET PO SCH (12:05)
[2025-01-14 14:15] VITALS: TEMP 98.4
[2025-01-14 18:40] VITALS: BP 104/58; PULSE 89
== END 2025-01-14 18:40 | disposition home or self-care (01) | DRG 197 ==
LOC: JER 05:14 → JERBED 09:53 → J4S 11:14
PROVIDERS: ADMIT Family Medicine
DX: T81.718A Complication of other artery following a procedure, not elsewhere classified, initial encounter (principal); I26.99 Other pulmonary embolism without acute cor pulmonale; D05.12 Intraductal carcinoma in situ of left breast; E78.5 Hyperlipidemia, unspecified; I10 Essential (primary) hypertension; Y83.9 Surgical procedure, unspecified as the cause of abnormal reaction of the patient, or of later complication, without mention of misadventure at the time of the procedure
CPT/HCPCS: 36415; 71046-TC-FY; 71275-TC; 80053; 82272; 82550; 83735; 83880; 84484; 85027; 85610; 85730; 86803; 86850; 86900; 86901; 87389; 93005; 93010; 93306-TC; 97116-GP; 97161-GP; 99285-25; J1644

== ENCOUNTER 2025-01-15 02:15 | Emergency (ER) | payer OTHER ==
[2025-01-15 02:34] VITALS: PULSE 90; RESP 14; TEMP 98.3; BMI 32.3
[2025-01-15] MEDS ORDERED: APIXABAN 5 MG TABLET ONE (03:44)
[2025-01-15] MEDS: APIXABAN 5 MG TABLET PO ONE (03:47)
[2025-01-15] MEDS ORDERED: ACETAMINOPHEN 325 MG TABLET (FP) ONE (03:49)
[2025-01-15 04:16] VITALS: BP 102/52
[2025-01-15] MEDS ORDERED: APIXABAN 5 MG TABLET PO SCH (10:00)
== END 2025-01-15 04:18 | disposition home or self-care (01) ==
LOC: JER 02:15
DX: I10 Essential (primary) hypertension (principal); R00.2 Palpitations
CPT/HCPCS: 93005; 93010; 99283-25